=== PATIENT | male | born 1970 | race Hispanic/Latino ===

== ENCOUNTER → 2018-02-09 | Outpatient (REF) | payer MEDICARE ==
[~2018-02-09] MED LIST: AMLODIPINE BESY10 MG PO; AUGMENTIN500TAB PO; AVAPRO OR; CARAFATE PO; CYCLOBENZAPR10 MG PO; DARVOCET-N 100100 MG OR; EC ASPIRIN325 M1 PO; ENALAPRIL20 MG OR; FLEXERIL PO; GABAPENTIN300 M2 PO; LABETALOL100 MG OR; LIPITOR20 M1 PO; LORTAB 10-325 M1 TAB PO; MAGTAB SR84 MG PO; METFORMIN HCL500 M1 PO; METO50TA52 PO; METOPROLOL50 M1 PO; MIRALAX3350 N1 PO; MYFORTIC360 MG PO; NAPROSYN500 MG OR; NEURONTIN300 MG PO; OMEPRAZOLE20 M2 PO; POLYETHYLENE PO; PREDNISONE10 M2 PO; PRILOSEC20 MG OR; PROGRAF1 MG PO; SIMVASTATIN20 MG OR; SIMVASTATIN40 MG PO; TACROLIMUS1 MG PO; TRADJENTA5 MG PO; TRAMADOL HYDROC50 MG PO; TRICOR145 MG OR; TRIMIX; VALSARTAN160 MG PO; VICODIN HP1 TA1 PO; [UNRECOGNIZED DRUG - MIXTURE]
== END | disposition home or self-care (01) ==
LOC: BD 02-05 08:00
PROVIDERS: ATTEND Internal Medicine Endocrinology, Diabetes & Metabolism
DX: M85.80 Other specified disorders of bone density and structure, unspecified site (principal); M25.551 Pain in right hip; M79.659 Pain in unspecified thigh; M79.651 Pain in right thigh

== ENCOUNTER → 2018-02-11 | Outpatient (REF) | payer MEDICARE ==
[2018-02-11 08:37] LABS: URINE BILIRUBIN - DIPSTICK NEGATIVE (NEGATIVE); URINE BLOOD DIPSTICK SMALL (NEGATIVE); URINE COLOR YELLOW; URINE GLUCOSE - DIPSTICK NEGATIVE (NEGATIVE); URINE KETONE NEGATIVE (NEGATIVE); URINE LEUK ESTERASE NEGATIVE (NEGATIVE); URINE NITRITE - DIPSTICK NEGATIVE (Negative); URINE PROTEIN - DIPSTICK 100 mg/dL (NEG-TRACE); URINE SPECIFIC GRAVITY >=1.030; URINE UROBILINOGEN - DIPSTICK 0.2 E.U./dL (0.2)
[2018-02-11 08:39] LABS: HEMATOCRIT 40.9 % (39.0-50.0); HEMOGLOBIN 13.4 g/dl (14.0-18.0); IMMATURE GRANULOCYTES 0.9 % (0.0-5.0); MEAN CELL VOLUME 88.3 fL CALC (80.0-100.0); MEAN CORPUSCULAR HGB 28.9 pG CALC (26.0-32.0); MEAN CORPUSCULAR HGB CONC 32.8 g/L CALC (32.0-36.0); NEUT# 4.92 thou/uL (1.82-7.42); RED BLOOD COUNT 4.63 mill/uL (4.70-6.10); RED CELL DISTRI WIDTH 13.5 % (11.5-15.5); URINE CLARITY CLEAR
[2018-02-11 08:50] LABS: URINE RBC 0-2 RBC/hpf (0-5); URINE WBC 0-2 WBC/hpf (0-5)
[2018-02-11 08:56] LABS: BUN 30 mg/dL (9-20); CARBON DIOXIDE 27 mmol/l (22-30); CHLORIDE 108 mmol/l (95-108); CREATININE 0.8 mg/dL (0.7-1.3); GFR > 60 ML/MIN (>=60 (CALC)); GFR FOR AFR.AMER. > 60 ML/MIN (>=60 (CALC)); MAGNESIUM 1.6 mg/dL (1.6-2.3); POTASSIUM 4.3 mmol/l (3.5-5.1); SODIUM 144 mmol/l (137-146)
== END | disposition home or self-care (01) ==
LOC: LAB 07:36
PROVIDERS: ATTEND Internal Medicine Endocrinology, Diabetes & Metabolism
DX: E11.65 Type 2 diabetes mellitus with hyperglycemia (principal); Z79.52 Long term (current) use of systemic steroids; Z94.0 Kidney transplant status; D89.9 Disorder involving the immune mechanism, unspecified; E83.39 Other disorders of phosphorus metabolism; E86.0 Dehydration; E83.42 Hypomagnesemia; R82.79 Other abnormal findings on microbiological examination of urine; N39.0 Urinary tract infection, site not specified